=== PATIENT | female | born 1995 | race Caucasian/White ===

== ENCOUNTER 2017-04-11 17:53 | Emergency (ER) | payer BC ==
[~2017-04-11] VITALS: Ht 157.5 cm; Wt 106.5 kg
[2017-04-11 18:52] VITALS: BP 144/93
== END 2017-04-11 18:53 | disposition home or self-care (01) ==
LOC: EME 17:53
DX: S90.122A Contusion of left lesser toe(s) without damage to nail, initial encounter (principal); W01.198A Fall on same level from slipping, tripping and stumbling with subsequent striking against other object, initial encounter; Z88.0 Allergy status to penicillin
CPT/HCPCS: 99281; 99283